=== PATIENT | female | born 1980 | race Caucasian/White ===

== ENCOUNTER → 2018-02-03 | Outpatient (CLI) | payer BC ==
[~2018-02-03] MED LIST: DIPH50 PO; MULVITMINE PO; RANI150 PO
[2018-02-03 15:36] LABS: BASOPHILS ABSOLUTE AUTO 0.03 K/mm3 (0.00-0.23); BASOPHILS PERCENT AUTO 0 % (0-2); EOSINOPHILS ABSOLUTE AUTO 0.04 K/mm3 (0.00-0.68); EOSINOPHILS PERCENT AUTO 0 % (0-6); Hematocrit 39.2 % (33.0-51.0); Hemoglobin 13.5 g/dL (11.5-16.0); IMMATURE GRAN ABSOLUTE AUTO 0.03 K/mm3 (0.00-0.10); IMMATURE GRAN PERCENT AUTO 0 % (0-1); LYMPHOCYTES PERCENT AUTO 28 % (21-46); MONOCYTES PERCENT AUTO 5 % (4-13); Mean Corpuscular HGB 28.7 pg (26.0-34.0); Mean Corpuscular HGB Conc 34.4 g/dL (31.5-36.5); Mean Corpuscular Volume 83 fL (80-100); Mean Platelet Volume 11.2 fL (9.1-12.4); NEUTROPHILS ABSOLUTE AUTO 6.29 K/mm3 (1.96-9.15); NEUTROPHILS PERCENT AUTO 66 % (41-73); Platelet Count 276 K/mm3 (150-400); RDW Coefficient Variation 12.9 % (11.7-14.2); RDW Standard Deviation 38.9 fL (35.1-46.3); White Blood Cell Count 9.59 K/mm3 (4.00-11.30)
[2018-02-03 15:51] LABS: Alanine Aminotransfer (ALT/SGP 19 U/L (12-78); Albumin/Globulin Ratio 1.1 (0.8-1.8); Alk Phos 92 U/L (40-126); Anion Gap 11 mmol/L (6-16); Aspartate Aminotrans (AST/SGOT 18 U/L (12-37); Bilirubin, Total 0.3 mg/dL (0.1-1.0); Blood Urea Nitrogen 10 mg/dL (8-24); Bun/Creatinine Ratio 11.8 (12.0-20.0); CO2, Blood 24 mmol/L (21-32); Calcium, Blood 8.8 mg/dL (8.5-10.1); Chloride, Blood 104 mmol/L (98-108); Creatinine, Blood 0.85 mg/dL (0.40-1.00); Globulin, Blood 3.7 g/dL (2.2-4.0); Glomerular Filtration Rate >60 (60-); Glucose, Blood 104 mg/dL (70-99); Potassium, Blood 3.5 mmol/L (3.5-5.5); Sodium, Blood 139 mmol/L (136-145); Total Protein, Blood 7.7 g/dL (6.4-8.2)
[2018-02-03 15:52] LABS: Troponin I <0.017 ng/mL (0.000-0.040)
== END | disposition home or self-care (01) ==
LOC: LAB EV 15:31 → LAB SHORT 15:31
PROVIDERS: Physician Assistant
DX: R07.9 Chest pain, unspecified (principal)
CPT/HCPCS: 80053; 84484; 85025; 85379

== ENCOUNTER 2021-11-15 07:47 | Day surgery (SDC) | payer BC ==
[~2021-11-15] VITALS: Ht 160 cm; Wt 85.5 kg
--- NOTE | 2021-11-15 12:30 | NUR ---
ARRIVAL TO UNIT ALERT, ORIENTED, PLEASANT. AMBULATED TO BATHROOM TO ATTEMPT TO VOID; UNSUCCESSFUL. AMBULATES EASILY TO BED. VSS. ABD SOFT w/ LAP SITES x 4 TRANSVERSE ACROSS ABD. NO DRNG NOTED. DENIES N/V BUT NERVOUS TO TAKE IN PO & WISHES TO WAIT AWHILE. REPORTS ABD CRAMPY & TENDER. WANTS TO WAIT FOR PAIN MEDS. CLEAR LQ's OFFERED. LUNGS CLEAR & HRR.
[2021-11-15] MEDS ORDERED: ACET500 PO (16:22)
[2021-11-15] MEDS ORDERED: IBUP800 PO (16:23)
[2021-11-15] MEDS ORDERED: OXYC5 PO (16:23)
--- NOTE | 2021-11-15 16:59 | NUR ---
DISCHARGE ABD HAS REMAINED UNCHANGED; SOFT. NO DRNG. SCANT VAGINAL DRNG TO [place] PAD x 1. AMBULATES EASILY, VOIDED x 2. FIRST PVR WAS < 50. TAKING IN SIPS & JUST NOW STARTING TO FEEL HUNGRY. EXCITED TO GO HOME & HAVE SOUP. PICKED UP Rx FROM PHARMACY WHILE PT NAPPED EARLIER. ESCORTED OUT VIA W/C.
== END 2021-11-15 17:01 | disposition home or self-care (01) ==
LOC: ORSCMMR 07:47 → ORD 09:15 → ORSCMMR 09:15 → SURS 12:53 → ORSCMMR 17:01
PROVIDERS: Obstetrics & Gynecology
PROC: 8E0W4CZ Robotic Assisted Procedure of Trunk Region, Percutaneous Endoscopic Approach (ICD-10-PCS; principal; 2021-11-15 09:15)
PROC: 0UT94ZZ Resection of Uterus, Percutaneous Endoscopic Approach (ICD-10-PCS; principal; 2021-11-15 09:15)
PROC: 0UT74ZZ Resection of Bilateral Fallopian Tubes, Percutaneous Endoscopic Approach (ICD-10-PCS; principal; 2021-11-15 09:15)
PROC: 0DNU4ZZ Release Omentum, Percutaneous Endoscopic Approach (ICD-10-PCS; principal; 2021-11-15 09:15)
DX: N92.1 Excessive and frequent menstruation with irregular cycle (principal); N94.6 Dysmenorrhea, unspecified; N80.0 Endometriosis of uterus; D25.9 Leiomyoma of uterus, unspecified; K66.0 Peritoneal adhesions (postprocedural) (postinfection); Z87.891 Personal history of nicotine dependence
CPT/HCPCS: 58571; 49329; S2900; 88307; A9270; J0690; J1100; J1885; J2250; J2270; J2405; J2704; J2795; J3010; J7120